=== PATIENT | female | born 1960 | race African-American/Black ===

== ENCOUNTER → 2018-05-12 09:12 | Outpatient (CLI) | payer BC, SELFPAY ==
--- NOTE | 2018-05-12 09:23 | XR_ITS ---
XR chest 2V HISTORY: ITS.REASON: SHORTNESS OF BREATH,BRONCHITIS ORDERING PHYSICIAN: Leena Wetzel PATIENT AGE: 58 years COMPARISON: None FINDINGS: The cardiomediastinal silhouette and pulmonary vascularity are within normal limits. The lungs are clear without infiltrates, suspicious nodules, or pleural effusions. Calcific tendinitis is noted of the right shoulder. There is bony hypertrophy of the inferior aspect of the acromium on the left with subacromial stenosis No acute bony abnormalities. IMPRESSION: No acute cardiac or pulmonary findings. Calcific tendinitis of the right shoulder and subacromial stenosis of the left shoulder
== END ==
PROVIDERS: PCP Family Medicine; Visit Provider Nurse Practitioner
DX: R06.02 Shortness of breath (principal); J40 Bronchitis, not specified as acute or chronic
CPT/HCPCS: 71046

== ENCOUNTER → 2019-10-12 10:45 | Outpatient (CLI) | payer BC, SELFPAY ==
--- NOTE | 2019-10-12 10:51 | XR_ITS ---
PROCEDURE: XR LUMBAR SPINE MIN 4V CLINICAL INDICATION: LOW BACK PAIN COMPARISON: No exams were available for comparison FINDINGS: Minimal dextrocurvature. Normal alignment. Mild multilevel degenerative disc disease in the lower thoracic spine and at L3-L4 L4-5 and L5-S1. There are endplate osteophytes from L3-S1. No fracture or dislocation. No lytic or blastic change. Facet arthritic changes are also present at L5-S1 and L4-5. There is generalized vascular calcification. There are mild osteoarthritic changes of the hips. IMPRESSION: Lumbar spondylosis with degenerative disc disease and facet arthritic change Dictated by: Mushtaq Maravilla MD 10/12/2019 18:51 Electronically signed by Mushtaq Maravilla MD in [place] 10/12/2019 18:51
== END ==
PROVIDERS: PCP Family Medicine; Visit Provider Family Medicine
DX: M54.5 Low back pain (principal)
CPT/HCPCS: 72110

== ENCOUNTER → 2019-11-23 08:35 | Outpatient (CLI) | payer BC, SELFPAY ==
--- NOTE | 2019-11-23 08:35 | MM_ITS ---
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 R2 CAD reviewed. FINDINGS: Scattered fibroglandular densities are seen throughout both breast. There is stable minimal benign nodularity in the central portions of both breasts. There is a benign-appearing calcification right breast. IMPRESSION: Fibrofatty parenchyma with no suspicious lesions seen BI-RAD Category: 2 Benign Finding(s) FOLLOW-UP: 1YR 1 Year Follow-up (A letter has been sent to the patient regarding results of the study.) Dictated by: Dr. Denis Narayan MD 11/24/2019 09:[address] Deins Narayan MD in [place] 11/24/2019 09:32
== END ==
PROVIDERS: PCP Family Medicine; Visit Provider Nurse Practitioner Obstetrics & Gynecology
DX: Z12.31 Encounter for screening mammogram for malignant neoplasm of breast (principal)
CPT/HCPCS: 77063; 77067

== ENCOUNTER 2022-05-01 20:00 | Emergency (ER) | payer BC, SELFPAY ==
[2022-05-01 20:24] VITALS: BP 156/81; PULSE 70; RESP 20; TEMP 36.9; O2SAT 100; BMI 22.2
[2022-05-01 20:51] VITALS: BMI 25.7
--- NOTE | 2022-05-01 20:53 | CT_ITS ---
PROCEDURE INFORMATION: Exam: CT Abdomen And Pelvis With Contrast Exam date and time: 05/01/2022 9:24 PM Age: 62 years old Clinical indication: Abdominal pain; Localized; Lower; Additional info: Vaginal bleeding, low abd pain and bila flank pain TECHNIQUE: Imaging protocol: Computed tomography of the abdomen and pelvis with contrast. Radiation optimization: All CT scans at this facility use at least one of these dose optimization techniques: automated exposure control; mA and/or kV adjustment per patient size (includes targeted exams where dose is matched to clinical indication); or iterative reconstruction. Contrast material: ISOVUE; Contrast volume: 75 ml; Contrast route: IV; COMPARISON: CR XR LUMBAR SPINE MIN 4V 10/12/2019 11:09 AM FINDINGS: Lungs: Mild atelectasis in the lung bases. Heart: Heart size normal. Mediastinal space: The visualized distal esophagus is largely contracted without gross abnormality. Liver: Normal contour. No mass lesions. Mild intrahepatic biliary ductal dilatation. Gallbladder and bile ducts: Prior cholecystectomy with expected mild postoperative dilatation of the common bile duct. Pancreas: Normal. No inflammatory changes or ductal dilation. Spleen: Normal. No splenomegaly. Adrenal glands: Normal. No adrenal mass. Kidneys and ureters: No acute abnormalities. No hydronephrosis or hydroureter. 2 mm nonobstructive right renal stone. No ureteral stones. Small bilateral intrapelvic phleboliths noted. Stomach and bowel: The stomach is largely contracted. The small bowel is nondilated with no gross abnormality. No acute colonic abnormalities. Mild-moderate proximal colonic diverticulosis without changes of diverticulitis. Appendix: The appendix is normal in caliber and demonstrates no evidence of appendicitis. Intraperitoneal space: No free fluid or air. Vasculature: No acute process. No abdominal aortic aneurysm. Moderate calcific atherosclerosis. Lymph nodes: No adenopathy. Urinary bladder: Unremarkable as visualized. Reproductive: There is a 2.1 cm mass in the anterior fundal myometrium of the uterus most consistent with an intramural fibroid. No gross ovarian abnormalities. Bones/joints: No acute osseous abnormalities. Moderate-severe disc degenerative changes L3-L4 through L5-S1 with bilateral facet hypertrophy contributing to moderate-severe canal stenosis and bilateral foraminal stenoses. Soft tissues: Small fatty umbilical hernia . No evidence of associated bowel herniation or strangulation. IMPRESSION: 1. There is a 2.1 cm probable intramural uterine fibroid in the anterior fundal myometrium. 2. There is a 2 mm nonobstructive right renal stone. No ureteral stones or hydronephrosis. 3. Mild-moderate proximal colonic diverticulosis without diverticulitis. 4. Additional nonemergent findings detailed above.
[2022-05-01 20:58] LABS: Microscopic, Urine URINE MICROSCOPIC (MICROSCOPIC)
[2022-05-01 21:01] LABS: Basophils # 0.1 K/mm3 (0-0.2); Basophils % 1.6 % (0.1-2.0); Eosinophils # 0.2 K/mm3 (0.0-0.4); Eosinophils % 2.2 % (0.1-12.0); Hematocrit 49.3 % (37.0-47.0); Hemoglobin 15.4 g/dL (12.2-16.2); Lymphocytes # 2.1 K/mm3 (0.7-4.5); Mean Corpuscular HGB Conc 31.3 g/dL (31.8-35.4); Mean Corpuscular Hemoglobin 30.1 pg (27.0-31.2); Mean Corpuscular Volume 96.1 fl (81-99); Mean Platelet Volume 8.6 fl (7.4-10.4); Monocytes # 0.3 K/mm3 (0.1-1.0); Monocytes % 4.2 % (1.7-9.3); Neutrophils # 5.3 K/mm3 (1.8-7.8); Neutrophils % 65.8 % (37.0-80.0); Platelet Count 210 K/mm3 (142-424); Red Blood Count 5.13 M/mm3 (4.20-5.40); Red Cell Distribution Width 12.4 % (11.5-17.5)
[2022-05-01 21:02] LABS: Appearance,Urine CLOUDY (Clear); Bilirubin,Urine Negative (Negative); Blood, Urine 3+ (Negative); Color,Urine ORANGE (Yellow); Glucose,Urine (UA) Negative (Negative); Ketones,Urine Negative (Negative); Leukocyte Esterase,Urine Negative (Negative); Nitrate,Urine Negative (Negative); Protein,Urine TRACE (Negative); Specific Gravity, Urine 1.025 (1.005-1.030); Urobilinogen,Urine 0.2 EU/dl (0.2)
--- NOTE | 2022-05-01 21:09 | HMH.EDUROGF ---
Discharge Plan Disposition Patient Disposition: Home, Self-Care Prescriptions Prescriptions: No Action azathioprine 50 mg tablet 50 mg PO DAILY zolpidem 10 mg tablet 10 mg PO QHS PRN (Reason: Insomnia) triamterene-hydrochlorothiazid 1 EACH tablet 1 each PO DAILY Referrals Follow up/Referrals: Blanche Macias MD [Primary Care Provider] - See instructions Carson Mattson MD [Staff Physician] - See instructions Clinical Impressions Clinical Impression: Dysfunctional uterine bleeding Discharge ED Provider: Sarabjit Jiemnez Female Urogenital HPI General Chief complaint: Vaginal Bleeding Stated complaint: vaginal bleeding Time Seen by Provider: 05/01/22 21:09 Mode of Arrival: Ambulatory Source of Information: Patient, Spouse and Medical Record Limitations: No Limitations Description of Symptoms (Recalled from ER Triage Doc. by RN): Patient complains of pain that started on thursday in her lower abdomen with lower back and flank pain. Patient resports bright red vaginal bleeding with increasing today. Reports dizziness on occation. Denies clots being passed. History of Present Illness HPI Narrative: has not felt well for a few weeks but over the last few days has lower abd/pelvic pain assoc with vag bleeding Complaint: vaginal bleeding Onset (ago): day(s) Location: suprapubic Severity: moderate : No Associated symptoms: denies other symptoms Related Data Home Medications Medication Instructions Recorded Confirmed triamterene 37.5 1 each PO DAILY blood pressure 07/19/18 05/01/22 mg-hydrochlorothiazide 25 mg tablet azathioprine 50 mg tablet 50 mg PO DAILY Immunosupression 11/16/19 05/01/22 zolpidem 10 mg tablet 10 mg PO QHS PRN Insomnia 11/16/19 05/01/22 Allergies Allergy/AdvReac Type Severity Reaction Status Date / Time etanercept AdvReac Verified 05/01/22 21:16 fenofibrate AdvReac Verified 05/01/22 21:16 hydralazine AdvReac Verified 05/01/22 21:16 infliximab AdvReac Verified 05/01/22 21:16 Interferons AdvReac Verified 05/01/22 21:16 methyldopa AdvReac Verified 05/01/22 21:16 minocycline AdvReac Verified 05/01/22 21:16 nitrofurantoin AdvReac Verified 05/01/22 21:16 STATINS AdvReac Uncoded 05/01/22 21:16 PFSH PFS Social History Smoking Status: Current every day smoker alcohol intake: never current occupational status: other Travel in the last 8 weeks: None caffeine: Yes ROS Obtained: Yes All systems reviewed & no additional complaints except as documented Physical Exam General General appearance: alert Head Head exam: normocephalic Eye Eye exam: Present PERRL and EOMI ENT ENT exam: Present mucous membranes moist Neck Neck exam: Present trachea midline Respiratory Respiratory exam: Present normal lung sounds bilaterally Cardiovascular Cardiovascular exam: Present regular rate Abdominal Exam Abdominal exam: Present soft and tenderness Abdominal tenderness: Present suprapubic Extremities Exam Extremities exam: Present normal inspection Neurological Exam Neurological exam: Present alert, oriented X3 and CN II-XII intact Skin Skin exam: Present intact Medical Decision Making Medical Records Medical records reviewed: Yes I reviewed the patient's medical records. James Inquiry Pt receiving controlled substance: No Vital Signs: 05/01/22 20:24 Temperature 98.4 F Temperature Source Oral Pulse Rate [Bilateral] 70 Respiratory Rate 20 Blood Pressure [Right Arm] 156/81 H Blood Pressure Mean [Right Arm] 106 Blood Pressure Source [Right Arm] Automatic Cuff Blood Pressure Position [Right Arm] Supine 02 Sat by Pulse Oximetry 100 Oxygen Delivery Method Room Air Lab Data Lab results reviewed: Yes I reviewed the patient's lab results. Lab Results 05/01/22 20:16: Urine Color [place], Urine Appearance Cloudy, Urine pH 7.0, Ur Specific [place] 1.025, Urine Protein Trace, Urine Glucose (UA) Negative, Urine Ketones Negative, Urine Bloo
[2022-05-01 21:10] LABS: Alanine Aminotransferase 23 U/L (12-78); Albumin Level 4.9 g/dl (3.5-5.0); Albumin/Globulin Ratio 1.4 (1.1-1.8); Alkaline Phosphatase 75 U/L (38-126); Aspartate Amino Transferase 35 U/L (14-36); Bilirubin,Total 0.5 mg/dl (0.2-1.3); Blood Urea Nitrogen 24 mg/dl (7-17); Calcium 10.3 mg/dl (8.4-10.2); Carbon Dioxide 23 mmol/L (22.0-30.0); Chloride 97 mmol/L (98-107); Creatinine Clearance Estimated 52 mL/min (50-200); Estimated Glomerular Filt Rate 46 ml/min (>60); GFR (African American) 55 ML/MIN (>60); Globulin 3.4 g/dL (1.3-3.2); Glucose 90 mg/dl (74-100); Sodium 138 mmol/L (136-145); Total Protein,Serum 8.3 g/dl (6.3-8.2)
[2022-05-01 21:13] LABS: Anion Gap 21.5 mEq/L (5-15); Potassium 3.5 mmoL/L (3.5-5.1)
[2022-05-01 21:16] LABS: Bacteria,Urine Trace /lpf; RBC,Urine TNTC #/hpf (0-3); Squamous Epithelial Cell,Urine Occasional #/hpf (0-5)
[2022-05-01 22:36] VITALS: BP 167/76; PULSE 61; RESP 18; TEMP 37.1; O2SAT 98
[2022-05-01 22:40] VITALS: BMI 31.3
== END 2022-05-01 23:01 | disposition home or self-care (01) ==
PROVIDERS: Emergency Provider Emergency Medicine; PCP Family Medicine
DX: N93.8 Other specified abnormal uterine and vaginal bleeding (principal); M54.50 Low back pain, unspecified; R42 Dizziness and giddiness; R10.9 Unspecified abdominal pain; G47.00 Insomnia, unspecified; F17.200 Nicotine dependence, unspecified, uncomplicated; Z88.8 Allergy status to other drugs, medicaments and biological substances
CPT/HCPCS: 74177; 80053; 81001; 85025; 96374; 99285; Q9967

== ENCOUNTER → 2022-05-08 13:45 | Outpatient (CLI) | payer BC, SELFPAY ==
--- NOTE | 2022-05-08 13:45 | US_ITS ---
FINAL REPORT CLINICAL HISTORY: fibroid uterus and post menopausal bleeding FINDINGS: Transvaginal/transabdominal sonographic images of the pelvis were obtained. The uterus measures 6.7 x 4.1 x 3.5 cm. The endometrium measures 7 mm, which is within normal limits. No uterine mass is identified. The ovaries were not visualized transvaginally or transabdominally due to bowel/gas. No mass is identified in the right or left adnexa. There is no evidence of free fluid. IMPRESSION: Ovaries not visualized due to bowel/gas. 2.2 cm uterine fibroid. Reviewed, Interpreted and Dictated by Alex Joiner MD Transcribed by Kenya Iverson Authenticated and [facility]
== END ==
PROVIDERS: PCP Family Medicine; Visit Provider Nurse Practitioner Obstetrics & Gynecology
DX: D25.1 Intramural leiomyoma of uterus (principal); N95.0 Postmenopausal bleeding
CPT/HCPCS: 76830

== ENCOUNTER 2024-01-05 02:44 | Emergency (ER) | payer BC, SELFPAY ==
[2024-01-05 02:45] VITALS: BP 172/80; PULSE 65; RESP 18; TEMP 36.9; O2SAT 100; BMI 31.1
--- NOTE | 2024-01-05 02:56 | XR_ITS ---
PROCEDURE INFORMATION: Exam: XR Chest Exam date and time: 01/05/2024 3:04 AM Age: 63 years old Clinical indication: Shortness of breath; Additional info: SOB TECHNIQUE: Imaging protocol: Radiologic exam of the chest. Views: 1 view. COMPARISON: CR CXR2V XR chest 2V 05/12/2018 9:24 AM FINDINGS: Lungs: Unremarkable. No consolidation. Pleural spaces: Unremarkable. No pleural effusion. No pneumothorax. Heart/Mediastinum: Unremarkable. No cardiomegaly. Bones/joints: Unremarkable. IMPRESSION: No acute findings.
--- NOTE | 2024-01-05 03:01 | ECG_ITS ---
APPROVED REPORT Exam: Resting ECG HR:55 bpm ECG Measurements Heart Rate 55 AXES NH 245 P 237 QRSd 81 QRS 59 QT 401 T 59 QTc 389 Conclusion ELECTRONIC ATRIAL PACEMAKER LOW QRS VOLTAGE IN PRECORDIAL LEADS [QRS DEFLECTION < 1.0 mV IN CHEST LEADS] ABNORMAL RHYTHM ECG UNCONFIRMED REPORT Electronically signed by : JOSSIE BLOCK, 01/08/2024 06:47:54
[2024-01-05] MEDS: LIDOCAINE 2% VISCOUS SOL 15ML UDC 15 ML PO (03:09)
--- NOTE | 2024-01-05 03:10 | ED_ITS ---
Discharge Plan Disposition Patient Disposition: Home, Self-Care Prescriptions Prescriptions: No Action azathioprine 50 mg tablet 50 mg PO DAILY zolpidem 10 mg tablet 10 mg PO QHS PRN (Reason: Insomnia) progesterone micronized [Prometrium] 100 mg capsule 100 mg PO DAILY 30 Days Qty: 30 3RF omeprazole 40 mg capsule,delayed release(DR/EC) 40 mg PO DAILY Patient Comments: TAKE 1 CAPSULE BY MOUTH ONCE DAILY triamcinolone acetonide 0.1 % ointment 1 applic topical BID PRN Patient Comments: APPLY OINTMENT TOPICALLY TO AFFECTED AREA TWICE DAILY cyclobenzaprine 10 mg tablet 10 mg PO DAILY atorvastatin 20 mg tablet 20 mg PO DAILY Patient Comments: TAKE 1 TABLET BY MOUTH ONCE DAILY FOR BLOOD FATS triamterene-hydrochlorothiazid 1 EACH tablet 1 each PO DAILY Referrals Follow up/Referrals: Provider,Referral, MD [Primary Care Provider] - See instructions Activity Restrictions/Add. Instructions Additional Instructions/Restrictions: Please follow-up with your primary care provider. Please return to the emergency department if you develop any new or worsening symptoms or become concerned for your health. Clinical Impressions Clinical Impression: Acute dyspnea Print Language Print Language: Kinyarwanda Discharge ED Provider: Vitaly Spears Adult HPI General Chief complaint: Shortness of Breath/Dyspnea Stated complaint: SOA Time Seen by Provider: 01/05/24 02:55 Mode of Arrival: Ambulatory Source of Information: Patient and Spouse Limitations: No Limitations Description of Symptoms (Recalled from ER Triage Doc. by RN): Patient reports that she feels like she just can't breathe and that this has been going on since noon 01/03. Patient reports that she has also been lightheaded, that she decribes as spaced out intermittently since this time as well. Patient reports that this lightheadedness is random, not positional. Patient reports that this shortness of breath has not worsened over time, but has not improved. Patient has been seeing Dr. Macias over the last three weeks due to other problems . History of Present Illness HPI narrative: 63-year-old female with history of autoimmune hepatitis, hypertension, chronic smoker presents for some shortness of breath. She reports that she feels like she cannot quite get a deep breath. She reports some irritation in her throat. Denies any recent fever or illness. She reports that she does not have any known underlying lung disease. She reports that she has been having intermittent migratory chest pain for the last 3 weeks. It is not new or changed tonight. She also reports that she sometimes feels like her heart skips a beat this is not changed recently. She denies any cough. No history of blood clots. Related Data Home Medications ?Medication ?Instructions ?Recorded ?Confirmed triamterene 37.5 1 each PO DAILY blood pressure 07/19/18 08/27/22 mg-hydrochlorothiazide 25 mg tablet azathioprine 50 mg tablet 50 mg PO DAILY Immunosupression 11/16/19 08/27/22 zolpidem 10 mg tablet 10 mg PO QHS PRN Insomnia 11/16/19 08/27/22 atorvastatin 20 mg tablet 20 mg PO DAILY 08/27/22 08/27/22 cyclobenzaprine 10 mg tablet 10 mg PO DAILY 08/27/22 08/27/22 omeprazole 40 mg capsule,delayed 40 mg PO DAILY 08/27/22 08/27/22 release triamcinolone acetonide 0.1 % 1 applic topical BID PRN 08/27/22 08/27/22 topical ointment Previous Rx's ?Medication ?Instructions ?Recorded progesterone micronized 100 mg 100 mg PO DAILY 30 days #30 caps 05/14/22 capsule (Prometrium) Allergies Allergy/AdvReac Type Severity Reaction Status Date / Time etanercept AdvReac Verified 01/05/24 03:10 fenofibrate AdvReac Verified 01/05/24 03:10 hydralazine AdvReac Verified 01/05/24 03:10 infliximab AdvReac Verified 01/05/24 03:10 Interferons AdvReac Verified 01/05/24 03:10 methyldopa AdvReac Verified 01/05/24 03:10 minocycline AdvReac Verified 01/05/24 03:10 nitrofurantoin AdvReac Verified 01/05/24 03:10 STATINS AdvReac Uncoded 08/27/22 11:15 PFS PFS Disclaimer: The information contained in this section may have been updated after the patient was seen, as this information can be updated by other users. Social History Smoking Status: Current every day smoker alcohol intake: never current occupational status: other Travel in the last 8 weeks: None caffeine: Yes ROS Obtained: Yes All systems reviewed & no additional complaints except as documented Physical Exam General General appearance: alert and in no apparent distress Head Head exam: atraumatic and normocephalic Eye Eye exam: Present normal appearance, PERRL and EOMI ENT ENT exam: Present normal oropharynx and normal external ear exam Neck Neck exam: Present normal inspection and full ROM Chest Chest inspection: Present normal inspection and symmetric chest wall rise; Absent tenderness Respiratory Respiratory exam: Present normal lung sounds bilaterally; Absent respiratory distress Cardiovascular Cardiovascular exam: Present regular rate and normal rhythm Abdominal Exam Abdominal exam: Present soft; Absent distention, tenderness or guarding Extremities Exam Extremities exam: Present normal inspection; Absent edema or joint swelling Back Exam Back exam: Present normal inspection; Absent tenderness Neurological Exam Neurological exam: Present alert and oriented X3; Absent motor sensory deficit Psychiatric Psychiatric exam: Present normal affect and normal mood Skin Skin exam: Present warm, dry and normal color Lymphatic Lymphatic Findings: no adenopathy Medical Decision Making Medical Records Medical records reviewed: Yes I reviewed the patient's medical records. James Inquiry Pt receiving controlled substance: No James was queried for this patient: No Vital Signs: 01/05/24 02:45 Temperature 98.4 F Temperature Source Oral Pulse Rate [Left Radial] 65 Respiratory Rate 18 Blood Pressure [Right Arm] 172/80 H Blood Pressure Mean [Right Arm] 110 Blood Pressure Source [Right Arm] Automatic Cuff Blood Pressure Position [Right Arm] Sitting 02 Sat by Pulse Oximetry 100 Oxygen Delivery Method Room Air Lab Data Lab results reviewed: Yes I reviewed the patient's lab results. Lab Results 01/05/24 03:25: WBC 6.3, RBC 4.65, Hgb 14.0, Hct 44.1, MCV 95.0, MCH 30.1, MCHC 31.7 L, RDW 12.8, Plt Count 219, MPV 8.7, Neut % (Auto) 45.5, Lymph % (Auto) 44.6, [place] % (Auto) 4.8, Eos % (Auto) 4.2, Baso % (Auto) 0.9, Neut # (Auto) 2.9, Lymph # (Auto) 2.8, [place] # (Auto) 0.3, Eos # (Auto) 0.3, Baso # (Auto) 0.1, D- Dimer 0.30, Sodium 139, Potassium 3.8, Chloride 108 H, Carbon Dioxide 24, Anion Gap 10.8, BUN 19 H, Creatinine 0.60, Estimated Creat Clear 63, Estimated GFR 101, Est GFR ( Amer) 122, Glucose 99, Calcium 9.8, Total Bilirubin 0.8, A ST 46 H, ALT 34, Alkaline Phosphatase 48, Troponin I 0.02, Total Protein 7.8, Albumin 4.2, Globulin 3.6 H, Albumin/Globulin Ratio 1.2 01/05/24 03:25 01/05/24 03:25 Orders (Tests/Meds): ED MEDICATIONS Discontinued Medications Generic Name Dose Route Start Last Admin Trade Name Freq PRN Reason Stop Dose Admin Acetaminophen 1,000 mg 01/05/24 02:55 01/05/24 03:33 Acetaminophen 500mg Tab PO 01/05/24 02:56 Not Given ONCE ONE Lidocaine HCl 15 ml 01/05/24 02:55 01/05/24 03:09 Lidocaine 2% Viscous [place]ek[place] 15ml Udc PO 01/05/24 02:56 15 ml ONCE ONE Administration ORDERS Category Date Time Status CXR --portable [XR chest portable] Stat Exams 01/05/24 02:56 Taken CBC w/Auto Diff [Complete Blood Count Auto Diff] Stat Lab 01/05/24 03:25 Completed CMP [Comprehensive Metabolic Panel] Stat Lab 01/05/24 03:25 Completed D-Dimer Stat Lab 01/05/24 03:25 Completed Troponin I Q3H Lab 01/05/24 03:25 Completed Troponin I Q3H Lab 01/05/24 06:00 Ordered HEART Score History (anamnesis): Slightly suspicious ECG: Normal Age: 45-65 years Risk factors: 1-2 risk factors Troponin: </= normal limit HEART Score: 2 Medical Decision Narrative: 63-year-old female with history of autoimmune hepatitis, hypertension, tobacco use presents for about 12 hours of difficult to describe shortness of breath. Reports about 3 weeks of intermittent migratory chest pain that is not significantly different tonight.. History was obtained via interactive discussion with patient, family, chart review. On arrival, patient is [afebrile, hemodynamically stable, satting appropriately, alert, oriented x4, GCS 15], moving all extremities spontaneously. Full physical exam performed and significant for clear lungs bilaterally, well-appearing patient Differential includes but is not limited to reactive airway, PE, pneumonia, URI, COVID, flu, ACS, heart failure, esophageal irritation, GERD. Given history and exam, I am not significant concerned for ACS at this time. We will proceed conservatively and obtain basic blood work including a single troponin, D-dimer, CBC CMP as well as EKG and chest x-ray. Patient was also given viscous lidocaine. Imaging independently interpreted by me and significant for clear lungs bilaterally without focal opacity. See radiology read for full review of final results. EKG independently interpreted by me and significant for ventricular rate of 55, no concerning ST or T wave changes. Normal intervals. Laboratory results independently interpreted by me and show normal troponin, normal D-dimer, no significant electrolyte derangement. Repeat troponin was considered, but deemed unnecessary due to chronicity of patient's symptoms. On reassessment, patient reports symptomatic resolution. The underlying etiology of patient's symptoms remains unclear, but no evidence of emergent pathology on workup today. Patient discharged in stable condition with instructions to follow-up with PCP. Procedures Risk/Benefits of Procedure(s) Were Explained: Yes Critical Care Critical Care Time Critical Care Time: No
[2024-01-05 03:38] LABS: Basophils # 0.1 K/mm3 (0-0.2); Basophils % 0.9 % (0.1-2.0); Eosinophils # 0.3 K/mm3 (0.0-0.4); Eosinophils % 4.2 % (0.1-12.0); Hematocrit 44.1 % (37.0-47.0); Lymphocytes # 2.8 K/mm3 (0.7-4.5); Lymphocytes % 44.6 % (10-50); Mean Corpuscular HGB Conc 31.7 g/dL (31.8-35.4); Mean Corpuscular Hemoglobin 30.1 pg (27.0-31.2); Mean Platelet Volume 8.7 fl (7.4-10.4); Monocytes # 0.3 K/mm3 (0.1-1.0); Monocytes % 4.8 % (1.7-9.3); Neutrophils # 2.9 K/mm3 (1.8-7.8); Neutrophils % 45.5 % (37.0-80.0); Platelet Count 219 K/mm3 (142-424); Red Blood Count 4.65 M/mm3 (4.20-5.40); Red Cell Distribution Width 12.8 % (11.5-17.5); White Blood Count 6.3 K/mm3 (4.8-10.8)
[2024-01-05 03:44] LABS: Alanine Aminotransferase 34 U/L (12-78); Albumin Level 4.2 g/dl (3.5-5.0); Albumin/Globulin Ratio 1.2 (1.1-1.8); Alkaline Phosphatase 48 U/L (38-126); Anion Gap 10.8 mEq/L (5-15); Aspartate Amino Transferase 46 U/L (14-36); Bilirubin,Total 0.8 mg/dl (0.2-1.3); Blood Urea Nitrogen 19 mg/dl (7-17); Calcium 9.8 mg/dl (8.4-10.2); Carbon Dioxide 24 mmol/L (22.0-30.0); Chloride 108 mmol/L (98-107); Creatinine Clearance Estimated 63 mL/min (50-200); Estimated Glomerular Filt Rate 101 ml/min (>60); GFR (African American) 122 ML/MIN (>60); Globulin 3.6 g/dL (1.3-3.2); Glucose 99 mg/dl (74-100); Potassium 3.8 mmoL/L (3.5-5.1); Sodium 139 mmol/L (136-145); Total Protein,Serum 7.8 g/dl (6.3-8.2)
[2024-01-05 03:57] LABS: Troponin I 0.02 ng/ml (0.00-0.034)
[2024-01-05 04:19] VITALS: BP 177/83; PULSE 53; RESP 17; TEMP 36.8; O2SAT 99
== END 2024-01-05 04:20 | disposition home or self-care (01) ==
PROVIDERS: Emergency Provider Emergency Medicine
DX: R06.02 Shortness of breath (principal); R42 Dizziness and giddiness; F17.210 Nicotine dependence, cigarettes, uncomplicated; K75.4 Autoimmune hepatitis
CPT/HCPCS: 71045; 80053; 84484; 85025; 85378; 93005; 99284

== ENCOUNTER 2024-05-11 08:45 | Day surgery (SDC) | payer BC, SELFPAY ==
[2024-05-11 09:47] VITALS: BP 144/96; PULSE 76; RESP 18; TEMP 36.2; O2SAT 100; BMI 31.5
--- NOTE | 2024-05-11 09:59 | P.PNANES_ITS ---
[facility] Disclaimer: The information contained in this section may have been updated after the patient was seen, as this information can be updated by other users. Medical History (Updated 05/11/24 @ 09:52 by Palmira Hayes RN) History of COVID-19 Anxiety Degenerative disc disease History of gastroesophageal reflux (GERD) Arrhythmia Surgical History (Updated 05/11/24 @ 09:52 by Palmira Hayes RN) History of cholecystectomy Family History (Updated 05/11/24 @ 09:52 by Palmira Hayes RN) Other Lung cancer Pulmonary hypertension Social History (Updated 05/11/24 @ 09:53 by Palmira Hayes RN) Smoking Status: Current every day smoker alcohol intake: current substance use type: denies use current occupational status: employed and retired Travel in the last 8 weeks: None caffeine: Yes [facility] Anesthesia Checklist Patient Identification Patient Identification: Arm Band Structural Data Admitted From: Home Planned Operative Procedure/s: Colonoscopy Consent for Planned Operative Procedure(s) Verified: Yes Verified Documents: Surgical Consent and History and Physical NPO Status Verified Time NPO: 00:00 Additional verifications Anesthesia Reactions: No Airway Assessment Mallampati Score:: Class II C-Spine Mobility Assessed: Yes TMJ Mobility Assessed: Yes Dentition: Good Dentition Neurological Assessment Level of Consciousness: Awake, Alert and Appropriate Anesthesia Plan Anesthesia Risk discussed: Yes Anesthesia Plan: Verified ASA Class: II Anesthesia Type: MAC
[2024-05-11] MEDS: LACTATED RINGERS 1000ML 1,000 ML 25 ML IV (10:00)
[2024-05-11 10:39] VITALS: O2SAT 100
--- NOTE | 2024-05-11 10:42 | EXP.HP ---
History of Present Illness *Admission Date: 05/11/24 *Reason for visit:: Recent diverticulitis *History of present illness: Mrs. Mays is a 64-year-old female who is here for diagnostic colonoscopy. The patient had an episode of diverticulitis confirmed by CAT scan in December 2023. This resolved with antibiotics. She has never had a colonoscopy. She had a negative Cologuard test last year. The examination is deemed medically necessary for colonoscopy. The patient has been seen, interviewed and examined prior to the procedure by both myself and the anesthesia provider. [facility] Disclaimer: The information contained in this section may have been updated after the patient was seen, as this information can be updated by other users. Medical History (Updated 05/11/24 @ 09:52 by Palmira Hayes RN) History of COVID-19 Anxiety Degenerative disc disease History of gastroesophageal reflux (GERD) Arrhythmia Surgical History (Updated 05/11/24 @ 09:52 by Palmira Hayes RN) History of cholecystectomy Family History (Updated 05/11/24 @ 09:52 by Palmira Hayes RN) Other Lung cancer Pulmonary hypertension Social History (Updated 05/11/24 @ 10:07 by Bright Sapp CRNA) Smoking Status: Current every day smoker alcohol intake: current substance use type: denies use current occupational status: employed and retired Travel in the last 8 weeks: None caffeine: Yes Other Medical History Have you received the Pneumonia Vaccine: No Review of Systems Review of Systems Review of systems (narrative): Negative *Cardiovascular Comments: Negative *Gastrointestinal Comments: Negative *Genitourinary Comments: Negative *Musculoskeletal Comments: Negative *Neurologic Comments: Negative Meds Home Medications and Allergies Home Medications ?Medication ?Instructions ?Recorded ?Confirmed ?Type zolpidem 10 mg tablet 12.5 mg PO QHS PRN Insomnia 11/16/19 05/11/24 History atorvastatin 10 mg tablet 10 mg PO DAILY 03/09/24 05/11/24 History azathioprine 50 mg tablet 50 mg PO DAILY Immunosupression 03/09/24 05/11/24 History cyclobenzaprine 10 mg tablet 10 mg PO DAILY PRN . 03/09/24 05/11/24 History potassium chloride 20 mEq 20 meq PO DAILY 03/09/24 05/11/24 History tablet,extended release propranolol 20 mg tablet 20 mg PO TIDP PRN ANXIETY 03/09/24 05/11/24 History sodium,potassium,mag sulfates 17.5 See Rx Instructions PO .COMPLEX 05/10/24 05/11/24 Rx gram-3.13 gram-1.6 gram oral soln #354 mL (Suprep Bowel Prep Kit) triamterene 37.5 1 tab PO DAILY 05/11/24 05/11/24 History mg-hydrochlorothiazide 25 mg tablet New Prescriptions to Start Prescriptions: Allergies Allergy/AdvReac Type Severity Reaction Status Date / Time Sulfa (Sulfonamide Allergy AUTO Verified 05/11/24 09:43 Antibiotics) IMMUNE HEPATITIS etanercept AdvReac Unknown Verified 05/11/24 09:43 allergy reaction fenofibrate AdvReac Unknown Verified 05/11/24 09:43 allergy reaction hydralazine AdvReac Unknown Unverified 05/11/24 09:43 allergy reaction infliximab AdvReac Unknown Verified 05/11/24 09:43 allergy reaction Interferons AdvReac Unknown Verified 05/11/24 09:43 allergy reaction methyldopa AdvReac Unknown Verified 05/11/24 09:43 allergy reaction minocycline AdvReac Unknown Verified 05/11/24 09:43 allergy reaction nitrofurantoin AdvReac AUTOIMMUNE Verified 05/11/24 09:43 HEPATITIS STATINS AdvReac ELEVATED Uncoded 05/11/24 09:43 LIVER ENZYMES Exam Data for Last 24 hours Vital signs and Labs for Last 24 Hours: Temp Pulse Resp BP Pulse Ox O2 Del Method O2 Flow Rate 97.1 F L 76 18 144/96 H 100 Nasal Cannula 5 05/11/24 09:47 05/11/24 09:47 05/11/24 09:47 05/11/24 09:47 05/11/24 09:47 05/11/24 10:39 05/11/24 10:39 I & O for Last 24 hours: Intake & Output 05/08/24 05/09/24 05/10/24 05/11/24 23:59 23:59 23:59 23:59 Weight 155 lb 15.985 oz *Routine HEENT Exam Head: Present normocephalic Eye: Present EOMI and PERRL ENT: Present mucous membranes moist *Routine Neck Exam Neck: Present supple *Routine Respiratory Exam Respiratory: Present CTA bilaterally *Routine Cardiovascular Exam Cardiovascular: Present RRR *Routine Abdominal Exam Abdominal: Present soft and normoactive bowel sounds; Absent tenderness *Routine Rectal Exam Rectal:: deferred *Routine Genitalia Exam Genitalia:: deferred *Routine Extremities Exam Extremities: Absent cyanosis, clubbing or edema *Routine Skin Exam Skin: Present warm; Absent rash *Routine Neurological Exam Neurological: Present alert and oriented X3 Assessment and Plan *Assessment and plan (1) Diverticulitis: Status: Acute Category: Medical Code(s): K57.92 - Diverticulitis of intestine, part unspecified, without perforation or abscess without bleeding (2) Constipation: Status: Acute Category: Medical Code(s): K59.00 - Constipation, unspecified Plan A/P: 1. Recent and first bout of diverticulitis in December is the preprocedural diagnosis. The patient will be anesthetized/sedated using MAC sedation. The patient has been seen and examined. Cardiac and lung assessment prior to the examination is stable. Proceed with planned diagnostic colonoscopy
--- NOTE | 2024-05-11 10:45 | P.PCN_ITS ---
[facility] Procedure Note Date: 05/11/24 Time: 11:00 Procedure Note:: Colonoscopy Procedure Report: Colonoscopy with cold snare polypectomy Endoscopist: Slim Gomez II, MD Referring physician: Susan Macias M.D. Date of Procedure: May 11, 2024 Equipment: Olympus 190 variable stiffness pediatric colonoscope Sedation: MAC sedation Indication: Mrs. Mays is a 64-year-old female who is here for diagnostic colonoscopy secondary to acute sigmoid diverticulitis in December 2023. This was confirmed by CAT scan. This resolved with antibiotics. She does have some chronic constipation. She reports no rectal bleeding, weight loss or family history of colon cancer. She has never had a colonoscopy. She had a negative Cologuard test in September 2022. Procedure: Prior to the procedure, a history and physical exam was performed, and patient's medications and allergies were reviewed. The risks, benefits and alternatives of the sedation and procedure were discussed with the patient. All questions were answered and informed consent was obtained. The patient was brought to the procedure room. Patient identification and proposed procedure were verified by the physician and the nurse. The patient was placed in a left lateral decubitus position and the scope was passed under direct vision. Throughout the procedure, the patient's blood pressure, pulse, and oxygen saturations were monitored continuously. The colonoscopy was accomplished without difficulty. The patient tolerated the procedure well. Findings: On digital rectal examination there was normal rectal tone. There were no external hemorrhoids. The colonoscope was introduced through the anal canal to the rectum and advanced to the cecum. The ileocecal valve and appendiceal orifice were identified. The scope was advanced a short distance into the ileum which appeared grossly normal. The scope was then withdrawn into the colon. There was a single 7 mm flat sessile polyp in the cecum removed via cold snare polypectomy. There were scattered diverticuli throughout the colon but more predominantly in the descending and sigmoid colon. The remainder of the ascending, transverse, descending, sigmoid and rectum were grossly normal.. Upon retroflexion within the rectum there were grade 2 internal hemorrhoids.The preparation was excellent throughout with [place] Preparation Score of 9. The cecal time was 12 minutes. Impression: 1. Cecal polyp (7 mm) 2. Pandiverticulosis 3. Grade 2 internal hemorrhoids Plan: I will follow-up the polyp histology and recommend repeat surveillance colonoscopy again in 7 years based upon adenomatous pathology. I would encourage a fiber bowel regimen on a long-term daily maintenance basis.
[2024-05-11 11:03] VITALS: BP 107/70; PULSE 75; RESP 16; TEMP 36.4; O2SAT 96
[2024-05-11 11:13] VITALS: BP 116/67; PULSE 68; RESP 16; O2SAT 96
[2024-05-11 11:20] VITALS: BP 125/72; PULSE 61; RESP 16; O2SAT 97
[2024-05-11 11:33] VITALS: BP 138/79; PULSE 62; RESP 16; O2SAT 98
== END 2024-05-11 11:34 | disposition home or self-care (01) ==
PROVIDERS: PCP Family Medicine; Visit Provider Internal Medicine Gastroenterology
PROC: (CPT 45385; principal; 2024-05-11 10:30)
DX: K57.92 Diverticulitis of intestine, part unspecified, without perforation or abscess without bleeding (principal); K59.00 Constipation, unspecified; D12.0 Benign neoplasm of cecum; K57.30 Diverticulosis of large intestine without perforation or abscess without bleeding; K64.1 Second degree hemorrhoids
CPT/HCPCS: 45385; J7120

== ENCOUNTER 2024-06-14 10:59 | Outpatient (CLI) | payer BC, SELFPAY ==
[2024-06-14 11:13] LABS: Basophils # 0.1 K/mm3 (0-0.2); Eosinophils # 0.2 K/mm3 (0.0-0.4); Eosinophils % 2.9 % (0.1-12.0); Hemoglobin 14.1 g/dL (12.2-16.2); Lymphocytes # 2.1 K/mm3 (0.7-4.5); Lymphocytes % 40.2 % (10-50); Mean Corpuscular Hemoglobin 29.4 pg (27.0-31.2); Mean Corpuscular Volume 91.7 fl (81-99); Monocytes # 0.4 K/mm3 (0.1-1.0); Monocytes % 7.5 % (1.7-9.3); Neutrophils # 2.5 K/mm3 (1.8-7.8); Neutrophils % 48.2 % (37.0-80.0); Platelet Count 235 K/mm3 (142-424); Red Cell Distribution Width 12.1 % (11.5-17.5); White Blood Count 5.1 K/mm3 (4.8-10.8)
[2024-06-14 12:00] LABS: Alanine Aminotransferase 71 U/L (12-78); Albumin Level 4.4 g/dl (3.5-5.0); Albumin/Globulin Ratio 1.4 (1.1-1.8); Alkaline Phosphatase 56 U/L (38-126); Aspartate Amino Transferase 78 U/L (14-36); Bilirubin,Total 0.9 mg/dl (0.2-1.3); Blood Urea Nitrogen 17 mg/dl (7-17); Calcium 9.7 mg/dl (8.4-10.2); Carbon Dioxide 23 mmol/L (22.0-30.0); Chloride 109 mmol/L (98-107); Estimated Glomerular Filt Rate 84 ml/min (>60); GFR (African American) 102 ML/MIN (>60); Globulin 3.1 g/dL (1.3-3.2); Glucose 91 mg/dl (74-100); Sodium 140 mmol/L (136-145); Total Protein,Serum 7.5 g/dl (6.3-8.2)
[2024-06-16 00:08] LABS: ALT (SGPT) P5P 87 IU/L (0-40); AST (SGOT) P5P 70 IU/L (0-40); Alpha 2-Macroglobulins, Qn 415 mg/dL (110-276); Apolipoprotein A-1 155 mg/dL (116-209); Bilirubin, Total 0.5 mg/dL (0.0-1.2); Cholesterol, Total 156 mg/dL (100-199); Fibrosis Score 0.84 (0.00-0.21); GGT 28 IU/L (0-60); Glucose 88 mg/dL (70-99); Haptoglobin <10 mg/dL (37-355); Steatosis Score 0.37 (0.00-0.40); Triglycerides 166 mg/dL (0-149)
== END 2024-06-14 23:59 | disposition home or self-care (01) ==
LOC: LAB 11:00
PROVIDERS: PCP Family Medicine; Visit Provider Nurse Practitioner Family
DX: K75.4 Autoimmune hepatitis (principal); R74.8 Abnormal levels of other serum enzymes
CPT/HCPCS: 36415; 80053; 85025

== ENCOUNTER 2024-11-02 08:02 | Outpatient (CLI) | payer BC, SELFPAY ==
[2024-11-02 08:32] LABS: Basophils % 0.5 % (0.1-2.0); Eosinophils # 0.2 Kmm3 (0.0-0.4); Eosinophils % 3.5 % (0.1-12.0); Hematocrit 44.7 % (37.0-47.0); Hemoglobin 14.4 g/dL (12.2-16.2); Immature Granulocytes # 0.01 10^3uL; Immature Granulocytes % 0.2 %; Lymphocytes # 2.1 K/mm3 (0.7-4.5); Lymphocytes % 33.8 % (10-50); Mean Corpuscular HGB Conc 32.2 g/dL (31.8-35.4); Mean Corpuscular Hemoglobin 29.6 pg (27.0-31.2); Mean Platelet Volume 10.4 fl (7.4-10.4); Monocytes # 0.4 K/mm3 (0.1-1.0); Monocytes % 6.4 % (1.7-9.3); Neutrophils # 3.5 K/mm3 (1.8-7.8); Neutrophils % 55.6 % (37.0-80.0); Nucleated Red Blood Cells # 0 10^3/uL; Nucleated Red Blood Cells % 0 %; Platelet Count 248 K/mm3 (142-424); Red Blood Count 4.86 M/mm3 (4.20-5.40); Red Cell Distribution Width 11.6 % (11.5-17.5); Red Cell Distribution Width-SD 39.3 fL; White Blood Count 6.2 K/mm3 (4.8-10.8)
[2024-11-02 08:49] LABS: INR 0.98 (0.9-1.1); Prothrombin Time 10.9 seconds (10.1-12.5)
[2024-11-02 09:00] LABS: Alanine Aminotransferase 20 U/L (12-78); Albumin Level 4.4 g/dl (3.5-5.0); Albumin/Globulin Ratio 1.4 (1.1-1.8); Alkaline Phosphatase 57 U/L (38-126); Anion Gap 11.1 mEq/L (5-15); Aspartate Amino Transferase 31 U/L (14-36); Bilirubin,Total 0.8 mg/dl (0.2-1.3); Blood Urea Nitrogen 20 mg/dl (7-17); Calcium 9.6 mg/dl (8.4-10.2); Carbon Dioxide 28 mmol/L (22.0-30.0); Chloride 104 mmol/L (98-107); Estimated Glomerular Filt Rate 72 ml/min (>60); GFR (African American) 87 ML/MIN (>60); Globulin 3.1 g/dL (1.3-3.2); Glucose 88 mg/dl (74-100); Potassium 4.1 mmoL/L (3.5-5.1); Sodium 139 mmol/L (136-145); Total Protein,Serum 7.5 g/dl (6.3-8.2)
[2024-11-02 09:52] LABS: Iron 109 ug/dL (37-170)
[2024-11-02 10:07] LABS: Total Iron Binding Capacity 346 ug/dL (265-497)
[2024-11-02 10:30] LABS: Ferritin 160 ng/ml (11.1-264)
[2024-11-05 05:35] LABS: ALT (SGPT) P5P 23 IU/L (0-40); AST (SGOT) P5P 28 IU/L (0-40); Alpha 2-Macroglobulins, Qn 372 mg/dL (110-276); Apolipoprotein A-1 166 mg/dL (116-209); Bilirubin, Total 0.4 mg/dL (0.0-1.2); Cholesterol, Total 199 mg/dL (100-199); Fibrosis Score 0.71 (0.00-0.21); GGT 16 IU/L (0-60); Glucose 86 mg/dL (70-99); Haptoglobin <10 mg/dL (37-355); Steatosis Score 0.18 (0.00-0.40); Triglycerides 124 mg/dL (0-149)
== END 2024-11-02 23:59 | disposition home or self-care (01) ==
LOC: LAB 08:04
PROVIDERS: PCP Family Medicine; Visit Provider Nurse Practitioner Family
DX: K75.4 Autoimmune hepatitis (principal)
CPT/HCPCS: 36415; 80053; 82172; 82247; 82465; 82728; 82947; 82977; 83010; 83540; 83550; 83883; 84450; 84460; 84478; 85025; 85610

== ENCOUNTER 2025-04-24 11:08 | Outpatient (CLI) | payer MEDICARE, SELFPAY ==
[2025-04-24 12:36] LABS: Alanine Aminotransferase 22 U/L (12-78); Albumin Level 4.2 g/dl (3.5-5.0); Albumin/Globulin Ratio 1.3 (1.1-1.8); Alkaline Phosphatase 65 U/L (38-126); Anion Gap 9.9 mEq/L (5-15); Aspartate Amino Transferase 33 U/L (14-36); Bilirubin,Total 0.7 mg/dl (0.2-1.3); Blood Urea Nitrogen 16 mg/dl (7-17); Calcium 9.9 mg/dl (8.4-10.2); Carbon Dioxide 26 mmol/L (22.0-30.0); Chloride 105 mmol/L (98-107); Creatinine,Serum 0.80 mg/dl (0.52-1.04); Estimated Glomerular Filt Rate 72 ml/min (>60); GFR (African American) 87 ML/MIN (>60); Globulin 3.3 g/dL (1.3-3.2); Glucose 81 mg/dl (74-100); Potassium 3.9 mmoL/L (3.5-5.1); Sodium 137 mmol/L (136-145); Total Protein,Serum 7.5 g/dl (6.3-8.2)
== END 2025-04-24 23:59 | disposition home or self-care (01) ==
LOC: LAB 11:10
PROVIDERS: PCP Family Medicine; Visit Provider Nurse Practitioner Family
DX: K75.4 Autoimmune hepatitis (principal)
CPT/HCPCS: 36415; 80053